=== PATIENT | male | born 1995 | race Two or more races ===

== ENCOUNTER 2023-10-14 09:49 | Outpatient (AMB) | payer OTHER, SELFPAY ==
--- NOTE | 2023-10-14 09:52 | MHC.OFFWIV ---
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 He denies any fevers or bloody or black stools. He states nobody at home is sick. Has been trying to drink Gatorade and liquid IV but he feels like it is going right through him. PFSH Social History Patient Tobacco Use Status: Never used Tobacco Review of Systems Const All systems reviewed & are unremarkable except as noted in HPI and below Physical Exam Vital Signs: Last Vital Signs Temp 98.3 F 10/14/23 09:53 Pulse 107 H 10/14/23 09:53 BP 114/82 10/14/23 09:53 Pulse Ox 97 10/14/23 09:53 BMI result Body Mass Index 36.5 Const General: cooperative, well developed and tired appearing Nutritional Appearance: average body habitus Orientation/consciousness: patient oriented x3 Limitations: no limitations HEENT Head: Yes normal to inspection Eyes General: appearance normal, both eyes and all related structures Neck Neck: Yes normal visual inspection and Yes full ROM Resp Effort & Inspection: normal respiratory effort and able to speak in complete sentences Skin General skin exam: no rashes or lesions noted Neuro General: patient oriented x3 Extrem General: Yes normal to inspection Assessment & Plan Assessment & Plan (1) Diarrhea: Code(s): R19.7 - Diarrhea, unspecified Qualifiers: Diarrhea type: unspecified type Qualified Code(s): R19.7 - Diarrhea, unspecified Plan: With tachycardia, patient is likely dehydrated. Recommended going to ER for rehydration and further workup. Called expect to [facility] ED Plan See above Coding Level of Care Code New Pt Level 5 (06094) Diagnoses Diarrhea, unspecified type R19.7 Diarrhea type: unspecified type
[2023-10-14 09:53] VITALS: BP 114/82; PULSE 107; TEMP 36.8; O2SAT 97; BMI 36.5
== END 2023-10-14 10:17 | disposition home or self-care (01) ==
PROVIDERS: Visit Provider Physician Assistant
DX: R19.7 Diarrhea, unspecified (principal)
CPT/HCPCS: 99205

== ENCOUNTER 2023-10-14 10:22 | Emergency (ER) | payer OTHER, SELFPAY ==
--- NOTE | 2023-10-14 | ECG_ITS ---
Test Reason : DISSINESS Blood Pressure : / mmHG Vent. Rate : 105 BPM Atrial Rate : 105 BPM P-R Int : 126 ms QRS Dur : 092 ms QT Int : 332 ms P-R-T Axes : 064 004 056 degrees QTc Int : 438 ms Sinus tachycardia Otherwise normal ECG No previous ECGs available Referred By: Generic ED Physician Electronically Signed By:CONG DEL RIO MD
--- NOTE | ~2023-10-14 | CT_ITS ---
EXAMINATION: CT ABDOMEN AND PELVIS WITH CONTRAST CLINICAL INFORMATION: Right upper quadrant and epigastric pain. COMPARISON: None available. TECHNIQUE: Multidetector volumetric images were obtained from the superior aspect of the liver through the pubic symphysis following administration 85 mL of Omnipaque 350 intravenous contrast. Sagittal and coronal reformatted images were obtained on the technologist's workstation. Oral contrast: No This CT examination was performed using dose optimization techniques as appropriate, variously including the following: *Automated exposure control *Adjustment of mA and/or kV according to patient size (this includes techniques or standardized protocols for targeted exams where dose is matched to indication/reason for exam; i.e. extremities or head) *Use of iterative reconstruction technique DLP: 792 mGy-cm FINDINGS: LUNG BASES: The visualized lung bases are unremarkable. LIVER, GALLBLADDER, AND BILIARY TREE: Focal steatosis along the falciform ligament. No suspicious liver mass. No biliary ductal dilatation. The gallbladder appears normal. PANCREAS: No discrete pancreatic mass or pancreatic ductal dilatation. No peripancreatic inflammatory changes. SPLEEN: The spleen appears normal. ADRENAL GLANDS: Adrenal glands are normal. KIDNEYS AND URETERS: The kidneys are normal in size, shape, and attenuation. No hydronephrosis, hydroureter, or calculi seen. No perinephric stranding. BLADDER: Unremarkable. GASTROINTESTINAL TRACT: Mildly dilated small bowel with mucosal enhancement and mild edema. No discrete abrupt transition. Findings may represent enteritis early/incomplete bowel obstruction no abscess or fistula visible. The large bowel and appendix appear normal. ABDOMINAL WALL: No significant hernia is appreciated. LYMPH NODES: No lymphadenopathy. VASCULAR: No aortic aneurysm. The mesenteric arteries and veins enhance normally with no evidence of thrombosis or stenosis. PELVIC VISCERA: Unremarkable. OSSEOUS STRUCTURES: No suspicious osseous lesions. CT/CT abdomen pelvis w IV con IMPRESSION: Mildly dilated small bowel in the mid abdomen with mucosal enhancement and mild edema. There is gradual transition to normal caliber small bowel distally without abrupt transition point. Findings are consistent with enteritis. An early or incomplete small bowel obstruction is a possibility. Clinical correlation is necessary. Serial abdominal examinations recommended.
[2023-10-14 10:30] VITALS: BP 147/101; PULSE 105; RESP 18; TEMP 36.7; O2SAT 97; BMI 36.5
[2023-10-14 11:01] LABS: Hemoglobin 18.7 g/dl (14.0-18.0); Mean Corpuscular HGB Conc 35.3 g/dl (31.0-36.0); Mean Corpuscular Hemoglobin 30.8 pg (27.0-33.0); Mean Corpuscular Volume 87.3 fL (80.0-98.0); Mean Platelet Volume 10.2 fL (9.4-12.4); Platelet Count 293 X10*3/uL (160-400); Red Blood Count 6.07 X10*6/uL (4.60-5.80); Red Cell Distribution Width 12.3 % (11.0-16.0); White Blood Count 8.3 X10*3/uL (4.8-10.8)
[2023-10-14 11:19] LABS: Alanine Aminotransferase 23 U/L (0-40); Alkaline Phosphatase 71 U/L (39-117); Anion Gap 18 (12-20); Aspartate Amino Transferase 19 U/L (5-37); Bilirubin Total 1.2 mg/dL (0.0-1.0); Blood Urea Nitrogen 17 mg/dL (9-16); Calcium 10.5 mg/dL (8.4-10.2); Carbon Dioxide 25 mmol/L (22-29); Chloride 101 mmol/L (96-108); Creatinine Clr Calc Pharmacy 117.7; Estimated Glomerular Filt Rate > 60; Glucose Random 119 mg/dL (60-115); Lipase 24 U/L (8-78); Magnesium 2.4 mg/dL (1.6-2.6); Potassium 3.6 mmol/L (3.3-5.1); Sodium 140 mmol/L (135-145); Total Protein 9.2 g/dL (6.5-8.0)
[2023-10-14 11:23] LABS: Neutrophils Percent Manual 19 % (45-73)
[2023-10-14 11:26] LABS: Band Neutrophils Percent 46 % (3-5); Lymphocytes Percent Manual 12 % (20-40); Metamyelocytes Absolute 0.1 X10*3/uL; Metamyelocytes Percent 1 %; Monocytes Absolute Manual 1.8 X10*3/uL (0.1-1.2); Monocytes Percent Manual 22 % (2-11); Neutrophils Absolute Manual 5.4 X10*3/uL (2.0-8.3); RBC Morphology NORMAL
[2023-10-14 11:27] LABS: Platelet Estimate NORMAL (NORMAL); Platelet Morphology Comment NORMAL; Toxic Vacuolation PRESENT
[2023-10-14 11:36] LABS: Influenza A PCR NEGATIVE (Negative); Influenza B PCR NEGATIVE (Negative); Resp Syncy Virus RNA Qual PCR NEGATIVE (Negative); SARS COV2 PCR INHOUSE NEGATIVE (Negative)
[2023-10-14 12:30] VITALS: BP 154/105; PULSE 97; RESP 20; TEMP 37; O2SAT 98
[2023-10-14 12:38] LABS: Lactic Acid 2.1 mmol/L (0.5-2.0)
--- NOTE | 2023-10-14 13:03 | ED_ITS ---
HPI - Nausea/Vomiting/Diarrhea General Chief complaint: Nausea/Vomiting/Diarrhea Stated complaint: N/V/D Time Seen by Provider: 10/14/23 12:34 Source: patient Mode of arrival: ambulatory History of Present Illness ED Provider: Dr Boucher HPI Narrative: 27-year-old male without significant past medical history presents with abdominal pain and diarrhea that started on Thursday, he denies any use of alcohol over the weekend, does use cannabis but otherwise takes no prescription medications. He denies any associated fevers or chills but yesterday began vomiting, denies any recent travel or sick contacts and denies any urinary symptoms or history of renal colic. Related Data Home Medications ?Medication ?Instructions ?Recorded ?Confirmed No Known Home Meds 10/14/23 10/14/23 Allergies Allergy/AdvReac Type Severity Reaction Status Date / Time No Known Allergies Allergy Verified 10/14/23 10:32 Review of Systems 2 Review of Systems: Pertinent positives and negatives as stated in HPI [facility] Past Medical History Source: nursing notes reviewed Social History Social History Patient Tobacco Use Status: Never used Tobacco Advance Directives: No Advance Directives Information Provided: No Physical Exam 2 Vital Signs: Vital Signs: Last Vital Signs Temp 98.7 F 10/14/23 18:57 Pulse 91 10/14/23 18:57 Resp 13 10/14/23 18:57 BP 135/91 H 10/14/23 18:57 Pulse Ox 98 10/14/23 18:57 O2 Del Method Room Air 10/14/23 18:57 BMI result Body Mass Index 36.5 VITAL SIGNS: Reviewed. GENERAL: Well developed, well nourished, in no acute distress. HEAD: Normocephalic/atraumatic EYES: PERRLA, EOMI EARS: Ext canals without abnormality NOSE: Nares patent bilateral OROPHARYNX: no oral lesions noted, posterior pharynx clear NECK: Supple, no adenopathy LUNGS: Normal breath sounds. No adventitious sounds or accessory muscle use. SpO2<98> CARDIOVASCULAR: Regular rate and rhythm without noted murmurs ABDOMEN: Soft, diffusely tender but maximal in epigastric/right upper quadrant, non-distended with bowel sounds. MUSCULOSKELETAL: No tenderness, deformities, or effusions noted on gross inspection. EXTREMITIES: No cyanosis, clubbing or edema. SKIN: Inspection of the skin reveals no rashes NEUROLOGIC: Alert and oriented x 4. Strength and sensation to light touch were grossly intact x 4. Medications Administered Discontinued Medications Generic Name Dose Route Start Last Admin Trade Name Jas PRN Reason Stop Dose Admin Sodium Chloride 1,000 mls @ 999 mls/hr 10/14/23 13:15 10/14/23 14:46 Ns IV 10/14/23 14:15 Infused .Q1H1M MARY Infusion Iohexol 100 ml 10/14/23 13:41 10/14/23 13:41 Iohexol 350 Mg/Ml 100 Ml Infus..Btl IV 10/14/23 13:42 85 ml ONCE ONE Administration Loperamide HCl 2 mg 10/14/23 18:58 10/14/23 19:11 Loperamide Hcl 2 Mg Capsule PO 10/14/23 18:59 2 mg ONCE ONE Administration Ondansetron HCl 4 mg 10/14/23 13:01 10/14/23 13:24 Ondansetron Hcl 4 Mg/2 Ml Vial IVPUSH 10/14/23 13:02 4 mg ONCE ONE Administration Medical Decision Making Medical Decision Making MDM Narrative: 1300: Suspect underlying viral infection but can not rule out bacterial infection. 27-year-old male with history and clinical presentation, DDX: Gastroenteritis, pancreatitis, cyclical vomiting, gastritis, lower clinical suspicion for cholecystitis/choledocholithiasis. I reviewed interpreted all investigations and there is no leukocytosis, there is an elevated hemoglobin which I suspect is related to patient's hemoconcentration and poor oral intake since Thursday with persistent diarrhea. Chemistry indices do not demonstrate an SALUD and there is no electrolyte derangement. There is a detectable total bilirubin that is likely associated with patient's multiple episodes of diarrhea and dry heaves. Lactic acid is reflective of patient's hydration status and improved after he received fluids. Lipase is within normal limits. We obtained a stool sample and are awaiting values, CT scan consistent with enteritis they do entertain a discussion regarding obstruction, however this patient is certainly not obstructed as he has continued to have multiple episodes of diarrhea. EKG: Sinus tachycardic, HR-105, no STEMI, UT/QRS/QTC is within normal limits. Attempting to p.o. challenge, he remains hemodynamically stable. On re-evaluation patient is drinking plenty of water, but continues to have bowel movements, will provide Imodium and GI panel will results tomorrow morning and patient will be called with the results. He will also be discharged with recommendations to continue to use [id number] Imodium as well as dietary adjustments. Differential Diagnosis Differential Diagnoses: The differential diagnosis associated with the presentation includes Please see the discussion above Admission/Observation Consideration of admission/observation: Escalation of care including admission/observation considered Please see the discussion above Lab Data MDM Lab Attestation statement: I reviewed the patient's lab results. Please see the discussion above 10/14/23 10:53 10/14/23 10:53 Labs: Lab Results 10/14/23 10/14/23 10/14/23 Range/Units 10:53 11:48 14:29 WBC 8.3 (4.8-10.8) X10*3/uL RBC 6.07 H (4.60-5.80) X10*6/uL Hgb 18.7 H (14.0-18.0) g/dl Hct 53.0 H (42.0-52.0) % MCV 87.3 (80.0-98.0) fL MCH 30.8 (27.0-33.0) pg MCHC 35.3 (31.0-36.0) g/dl RDW 12.3 (11.0-16.0) % Plt Count 293 (160-400) X10*3/uL MPV 10.2 (9.4-12.4) fL Immature Gran % (Auto) Cancelled Neut % (Auto) Cancelled Lymph % (Auto) Cancelled Ferry % (Auto) Cancelled Eos % (Auto) Cancelled Baso % (Auto) Cancelled Lymph # (Auto) Cancelled Ferry # (Auto) Cancelled Eos # (Auto) Cancelled Baso # (Auto) Cancelled Abs Immat Gran (auto) Cancelled Absolute Neuts (auto) Cancelled Absolute Nucleated RBC 0.000 (0.0-0.012) X10*3/uL Nucleated RBC % (auto) 0.0 (0.0-0.2) /100WBC Neutrophils % (Manual) 19 L (45-73) % Band Neutrophils % 46 H (3-5) % Lymphocytes % (Manual) 12 L (20-40) % Monocytes % (Manual) 22 H (2-11) % Metamyelocytes % 1 % Abs Neuts (Manual) 5.4 (2.0-8.3) X10*3/uL Lymphocytes # (Manual) 1.0 L (1.2-4.9) X10*3/uL Monocytes # (Manual) 1.8 H (0.1-1.2) X10*3/uL Metamyelocytes # 0.1 X10*3/uL Toxic Vacuolation PRESENT Platelet Estimate NORMAL (NORMAL) Plt Morphology Comment NORMAL RBC Morphology NORMAL Sodium 140 (135-145) mmol/L Potassium 3.6 (3.3-5.1) mmol/L Chloride 101 (96-108) mmol/L Carbon Dioxide 25 (22-29) mmol/L Anion Gap 18 (12-20) BUN 17 H (9-16) mg/dL Creatinine 1.26 (0.5-1.4) mg/dL Estim Creat Clear Calc 117.7 Estimated GFR > 60 Random Glucose 119 H (60-115) mg/dL Lactic Acid 2.1 H* 1.9 (0.5-2.0) mmol/L Calcium 10.5 H (8.4-10.2) mg/dL Magnesium 2.4 (1.6-2.6) mg/dL Total Bilirubin 1.2 H (0.0-1.0) mg/dL AST 19 (5-37) U/L ALT 23 (0-40) U/L Alkaline Phosphatase 71 (39-117) U/L Total Protein 9.2 H (6.5-8.0) g/dL Albumin 5.0 (3.5-5.0) g/dL Lipase 24 (8-78) U/L Influenza Type A (PCR) NEGATIVE (Negative) Influenza Type B (PCR) NEGATIVE (Negative) RSV RNA Qual (PCR) NEGATIVE (Negative) SARS-CoV-2 RNA (RT-PCR) NEGATIVE (Negative) Independent Interpretation I performed an independent interpretation of an: EKG Interpretation: Please see the discussion above Radiology Impression Discussion of test interpretation with radiology: I have reviewed the radiologist's reading. Radiologist Impression: Please see the discussion above Critical Care Time Critical Care Time Critical Care Time: Yes Total Critical Care Time: 45 Attestation: I personally attest to this time spent taking care of the patient. Discharge Plan Discharge Clinical Impression: Gastroenteritis, Dehydration Patient Disposition: Home, Self-Care Instructions: Dehydration (ED), Gastroenteritis (ED), Nutrition Tips for Relief of Diarrhea (ED) Additional Instructions: 1. Continue to drink plenty of fluids and I highly recommend that you follow the recommendations for dietary changes to help firm up your stools. 2. Recommend [id number] Imodium, take as directed on the outside packaging. You will be called in the morning with the results of the GI panel. Return to the ER for any worsening symptoms. Prescriptions: No Action No Known Home Meds Print Language: Montenegrin
[2023-10-14] MEDS: ondansetron HCL 4 MG/2 ML VIAL IVPUSH (13:24)
[2023-10-14] MEDS: 0.9 % Sodium Chloride 1,000 ML 999 ML IV (13:24)
[2023-10-14] MEDS: iohexoL 350 MG/ML 100 ML INFUS..BTL IV (13:41)
[2023-10-14 13:51] LABS: Reflex Lactate? Lactic Acid Added
[2023-10-14 14:43] LABS: Lactic Acid 1.9 mmol/L (0.5-2.0)
[2023-10-14 16:22] VITALS: RESP 20
[2023-10-14 18:57] VITALS: BP 135/91; PULSE 91; RESP 13; TEMP 37.1; O2SAT 98
--- NOTE | 2023-10-14 19:10 | PC.NURSE ---
Assumed care of pt. pt lying on stretcher, no acute distress at this time. Medicating per orders, preparing for discharge./
[2023-10-14] MEDS: Loperamide HCl 2 MG CAPSULE PO (19:11)
[2023-10-14 19:31] VITALS: BP 144/69; PULSE 78; RESP 16; TEMP 36.8; O2SAT 98
[2023-10-15 11:21] LABS: Adenovirus F 40/41 Not Detected (Not Detect.); Astrovirus Not Detected (Not Detect.); Campylobacter Not Detected (Not Detect.); Cryptosporidium Not Detected (Not Detect.); Cyclospora cayetanensis Not Detected (Not Detect.); E. coli EAEC Not Detected (Not Detect.); E. coli EPEC Detected (Not Detect.); E. coli ETEC Not Detected (Not Detect.); E. coli STEC Not Detected (Not Detect.); Entamoeba histolytica Not Detected (Not Detect.); Giardia lamblia Not Detected (Not Detect.); Norovirus GI/GII Not Detected (Not Detect.); Plesiomonas shigelloides Not Detected (Not Detect.); Rotavirus A Not Detected (Not Detect.); Salmonella Not Detected (Not Detect.); Sapovirus Not Detected (Not Detect.); Shigella sp./EIEC Not Detected (Not Detect.); Vibrio Not Detected (Not Detect.); Vibrio Cholerae Not Detected (Not Detect.); Yersinia enterocolitica Not Detected (Not Detect.)
== END 2023-10-14 19:32 | disposition home or self-care (01) ==
PROVIDERS: Physician Assistant Medical; Emergency Provider Student in an Organized Health Care Education/Training Program
DX: K52.9 Noninfective gastroenteritis and colitis, unspecified (principal); E86.0 Dehydration; R11.2 Nausea with vomiting, unspecified; R00.0 Tachycardia, unspecified; R10.11 Right upper quadrant pain; R10.13 Epigastric pain; R42 Dizziness and giddiness; Z03.818 Encounter for observation for suspected exposure to other biological agents ruled out; F12.90 Cannabis use, unspecified, uncomplicated
CPT/HCPCS: 0241U; 36415; 74177; 80053; 83605; 83690; 83735; 85007; 85025; 85027; 87040; 87507; 93005; 96361; 96374; 99284; 99285; J2405; Q9967

== ENCOUNTER → 2023-10-14 10:41 | Outpatient (BNV) | payer OTHER, SELFPAY | PROVIDERS: Emergency Provider Student in an Organized Health Care Education/Training Program; Visit Provider Internal Medicine Cardiovascular Disease | DX: R42 Dizziness and giddiness (principal) | CPT/HCPCS: 93010 ==